=== PATIENT | male | born 1965 | race Caucasian/White ===

== ENCOUNTER 2022-03-23 08:40 | Day surgery (SDC) | payer BC ==
[2022-03-19 13:16] VITALS: BMI 24.4
[2022-03-23 10:14] VITALS: RESP 16; TEMP 97.5
[2022-03-23 10:16] VITALS: BP 126/69; PULSE 74
== END 2022-03-23 10:20 | disposition home or self-care (01) ==
LOC: FASU-ENDO 08:40
PROVIDERS: ATTEND Internal Medicine Gastroenterology
PROC: 0DBL8ZX Excision of Transverse Colon, Via Natural or Artificial Opening Endoscopic, Diagnostic (ICD-10-PCS; principal; 2022-03-23 09:36)
DX: Z12.11 Encounter for screening for malignant neoplasm of colon (principal); D12.6 Benign neoplasm of colon, unspecified
CPT/HCPCS: 88305-TC